=== PATIENT | female | born 1950 | race Caucasian/White ===

== ENCOUNTER 2017-01-09 10:33 | Emergency (ER) | payer MEDICARE, MEDICAID ==
[2017-01-09] MEDS ORDERED: AMOXICILLIN/POTASSIUM CLAV 875MG/125MG TABLET PO ONE (10:57)
[2017-01-09] MEDS ORDERED: Diph,Pert(Acell),Tet Vac 0.5 ML SYR IM ONE (10:57)
--- NOTE | 2017-01-09 11:00 | Emergency Department Record ---
History of Present Illness - General Chief Complaint: Animal Bite Stated Complaint: Cat Bite Time Seen by Provider: 01/09/17 10:47 Source: Patient Mode of Arrival: Ambulatory Limitations: No limitations - History of Present Illness Initial Comments: The patient was bitten by her cat about an hour ago over the dorsal R hand. She denies any numbness or tingling and her Td is not UTD. The cat has not had rabies shots but the patient has the cat at her house. Complaint: Animal bite Onset/Timin -: Minutes(s) Animal: Cat Description: Immunizations UTD, Appeared well Mechanism: Bite, Scratch Pain Description: Sharp, Dull Severity scale (1-10): 2 Context: Other - Related Data Patient Tetanus UTD (within 5 yrs): No Previous Rx's Medication Instructions Recorded Amoxicillin/Potassium Clav 1 tab PO BID #14 tablet 01/09/17 [Augmentin 875Mg/125Mg] Allergies Allergy/AdvReac Type Severity Reaction Status Date / Time No Known Drug Allergies Allergy Verified 01/09/17 10:47 Travel Screening - Travel/Exposure Within Last 30 Days Have you traveled within the last 30 days?: No - Travel/Exposure Within Last Year Have you traveled outside the [place] in the last year?: No - Additonal Travel Details Have you been exposed to anyone with a communicable illness?: No - Travel Symptoms Symptom Screening: None Review of Systems Constitutional: Denies: Chills, Fever Eyes: Denies: Eye discharge ENT: Denies: Congestion Respiratory: Denies: Cough Past Medical History - SOCIAL HISTORY Smoking Status: Current every day smoker Alcohol Use: None Drug Use: None - RESPIRATORY Hx Respiratory Disorders: No - CARDIOVASCULAR Hx Cardio Disorders: No - NEURO Hx Neuro Disorders: No - GI Hx GI Disorders: No - Hx Genitourinary Disorders: No - ENDOCRINE Hx Endocrine Disorders: No - MUSCULOSKELETAL Hx Musculoskeletal Disorders: No - PSYCH Hx Psych Problems: No - HEMATOLOGY/ONCOLOGY Hx Hematology/Oncology Disorders: No Family Medical History Any Significant Family History?: Yes Physical Exam - General General Appearance: Alert, Cooperative, No acute distress - Head Head exam: Atraumatic, Normocephalic - Eye Eye exam: Normal appearance, PERRL - Extremities Extremities exam: Full ROM (There is no pain or weakness with ROM of the fingers or wrist.), Normal capillary refill. negative: Normal inspection ( There are 2 lacerations to the dorsal R hand. The hand is NVI distally with normal tendon function. ) Image of Hand: 1 - One cm lac. 2 - < 1 cm superficial lac. Course Vital Signs 01/09/17 10:39 Temperature 97.9 F Pulse Rate 72 Respiratory 16 Rate Blood Pressure 192/94 Pulse Ox 99 - Reevaluation(s) Reevaluation #1: Procedure note: The R hand lacs were anesth. with 1.5 cc's Lido 1%. Both wounds were explored and not down to tendon or muscle. Both wounds were irrigated copiously with sterile saline. Both lacs were NOT sutured due to being high risk for infection. 01/09/17 11:17 Disposition Disposition: Discharge Clinical Impression: Cat bite of hand Qualifiers: Encounter type: initial encounter Laterality: right Qualified Code(s): S61.451A - Open bite of right hand, initial encounter Disposition: Home, Self-Care Condition: (1) Good Instructions: Animal Bite (ED) Additional Instructions: Please contact animal control to quarantine the cat. Keep the bandage clean and dry and return to the ER in 2 days for a wound recheck. Take Tylenol or Motrin for pain and take the Augmentin as directed. Return to the ER sooner for any increased pain, swelling, redness or fever. Prescriptions: Amoxicillin/Potassium Clav [Augmentin 875Mg/125Mg] 1 tab PO BID #14 tablet Forms: Patient Portal Access Time of Disposition: 11:21 Quality - Quality Measures Quality Measures: N/A - Blood Pressure Screening View Details: Yes Does Patient Have Any of the Following: No Blood Pressure Classification: Hypertensive Reading Systolic Measurement: 192 Diastolic Measurement: 94 Screening for High Blood Pressure: < Pre-Hypertensive BP, F/U Documented > [ [id number]] Pre-Hypertensive Follow-up Interventions: Referral to alternative/primary care provider.
== END 2017-01-09 11:28 | disposition home or self-care (01) ==
LOC: ER 10:33
DX: S61.451A Open bite of right hand, initial encounter (principal); W55.01XA Bitten by cat, initial encounter
CPT/HCPCS: 90715; 96372; 99283